=== PATIENT | male | born 1970 | race Caucasian/White ===

== ENCOUNTER → 2017-10-30 | Outpatient (CLI) | payer OTHER ==
[~2017-10-30] MED LIST: BETA ALANINE PEG; FOLI0.8T29 PO; MAGN100T PO; MULT1CAP59 PO; POTA10CA40 PO; VITA1CAP48 PO; [UNRECOGNIZED DRUG - OTHER] PO
--- NOTE | 2017-10-30 08:35 | RADIOLOGY IMAGING REPORT ---
FACILITY: [facility] PATIENT NAME: Krunal Mukherjee : 1970 MR: [id number] V: [id number] EXAM DATE: ORDERING PHYSICIAN: TORITO MCGRATH TECHNOLOGIST: [place] [facility] [place]runal Mukherjee : 1970 Visit/Account:[id number] Date of Sevice: 10/30/2017 Technique: CHEST PA AND LAT HISTORY: Chest pain Comparison studies: Chest radiographs August 31, 2014 FINDINGS: No lobar airspace consolidation. There are scattered interstitial lung markings as well as chronic central peribronchial thickening. The cardiomediastinal silhouette is unchanged. Surgical fixation hardware overlies the left clavicle. IMPRESSION: 1. Chronic lung changes as characterized above. Report Dictated By: Ike Corral DO at 10/30/2017 8:27 AM Report E-Signed By: Ike Corral DO at 10/30/2017 8:30 AM WSN:[id number]
== END ==
LOC: RAD 07:55
PROVIDERS: ATTEND Surgery
DX: R91.8 Other nonspecific abnormal finding of lung field (principal); Z96.7 Presence of other bone and tendon implants
CPT/HCPCS: 71046

== ENCOUNTER → 2017-11-07 | Outpatient (CLI) | payer OTHER ==
[~2017-11-07] MED LIST changes: +ALB18R INH; +AZIT-17 PO
--- NOTE | 2017-11-07 15:30 | RADIOLOGY IMAGING REPORT ---
FACILITY: [facility] [place] PATIENT NAME: Krunal Mukherjee : 1970 MR: [id number] V: [id number] EXAM DATE: ORDERING PHYSICIAN: TORITO MCGRATH TECHNOLOGIST: Location: [facility] Patient: Krunal Mukherjee : 1970 Visit/Account:[id number] Date of Sevice: 11/07/2017 Exam type: CHEST PA AND LAT History: Pneumothorax left, left rib fractures, productive cough Comparison: October 30, 2017. Findings: Multiple left-sided rib fractures are again seen. No definite pneumothorax identified. There is no evidence of acute pulmonary consolidation or pleural effusion. Cardiac silhouette is normal in size. Post surgical changes left clavicle noted IMPRESSION: 1. The left-sided rib fractures are again seen No evidence of acute-appearing pulmonary consolidation or pneumothorax. Report Dictated By: Jaimie Oseguera MD at 11/07/2017 2:34 PM Report E-Signed By: Jaimie Oseguera MD at 11/07/2017 3:24 PM WSN:[id number]
== END ==
LOC: RAD 13:38
PROVIDERS: ATTEND Surgery
DX: S22.32XA Fracture of one rib, left side, initial encounter for closed fracture (principal); Z96.7 Presence of other bone and tendon implants
CPT/HCPCS: 71046